=== PATIENT | male | born 1995 | race Caucasian/White ===

== ENCOUNTER 2017-08-08 18:06 | Emergency (ER) | payer SELFPAY ==
[2017-08-08 18:15] VITALS: BP 121/76
[2017-08-08] MEDS ORDERED: TYLENOL ONE (18:16)
[2017-08-08] MEDS ORDERED: TYLENOL PO ONE (18:16)
[2017-08-08] MEDS ORDERED: ULTRAM ONE (19:42)
[2017-08-08] MEDS ORDERED: ULTRAM PO ONE (19:47)
--- NOTE | 2017-08-08 20:41 | Emergency Department Report ---
ED Back Pain/Injury HPI - General Chief Complaint: Back Pain/Injury Stated Complaint: BACK PAIN Time Seen by Provider: 08/08/17 20:33 Source: patient Limitations: Physical Limitation - Related Data Allergies Allergy/AdvReac Type Severity Reaction Status Date / Time No Known Allergies Allergy Unverified 08/08/17 18:11 ED Review of Systems ROS: Stated complaint: BACK PAIN Other details as noted in HPI ED Past Medical Hx - Past Medical History Previous Medical History?: No - Surgical History Past Surgical History?: No - Social History Smoking Status: Never Smoker Substance Use Type: Marijuana ED Physical Exam - General Limitations: Physical Limitation ED Course Vital Signs 08/08/17 18:11 Temperature 98.7 F Pulse Rate 81 Respiratory 19 Rate Blood Pressure 121/76 O2 Sat by Pulse 98 Oximetry Critical care attestation.: If time is entered above; I have spent that time in minutes in the direct care of this critically ill patient, excluding procedure time. ED Disposition Condition: Stable Referrals: PRIMARY CARE [Primary Care Provider] - 3-5 Days
--- NOTE | 2017-08-08 20:43 | Emergency Department Report ---
Blank Doc - Documentation Documentation: Patient left without provided interview and are evaluating the patient.
== END 2017-08-08 20:33 | disposition left against medical advice (07) ==
LOC: ED 18:06
DX: M54.9 Dorsalgia, unspecified (principal); Z53.21 Procedure and treatment not carried out due to patient leaving prior to being seen by health care provider